=== PATIENT | male | born 1985 | race Caucasian/White ===

== ENCOUNTER 2023-12-24 10:06 | Emergency (ER) | payer OTHER ==
[~2023-12-24] VITALS: Ht 188 cm; Wt 124.7 kg
[~2023-12-24 10:06] MED LIST: ALPR2TAB2 PO; CLON-845 PO; DICY20TA55 PO; PARO-148 PO; VENL50TA2
[2023-12-24 10:13] VITALS: BP_SYST 171; PULSE 111; RESP 20; TEMP 98.3; O2SAT 98
[2023-12-24 10:55] LABS: BASOPHILS # (AUTO) 0.1 K/uL (0.0-0.2); BASOPHILS % (AUTO) 0.9 % (0.0-2.0); EOSINOPHILS # (AUTO) 0.3 K/uL (0.0-0.4); EOSINOPHILS % (AUTO) 2.9 % (0.0-4.0); HEMATOCRIT 44.5 % (36-54); HEMOGLOBIN 15.2 g/dL (14.0-18.0); LYMPHOCYTES # (AUTO) 2.9 K/uL (1.0-5.5); LYMPHOCYTES % (AUTO) 28.5 % (20.5-51.5); MEAN CORPUSCULAR HEMOGLOBIN 29 pg (27-31); MEAN CORPUSCULAR HGB CONC 34 % (32-36); MEAN CORPUSCULAR VOLUME 85 fL (79.0-98.0); MONOCYTES # (AUTO) 0.8 K/uL (0.0-1.0); MONOCYTES % (AUTO) 8.1 % (1.7-9.3); NEUTROPHILS % (AUTO) 59.6 % (40.0-70.0); PLATELET COUNT (AUTO) 317 K/uL (130-430); RED BLOOD CELL COUNT(AUTO) 5.23 MIL/uL (4.2-6.2); RED CELL DISTRIBUTION WIDTH 13.6 % (9.0-15.0); WHITE BLOOD COUNT (AUTO) 10.1 K/uL (4.8-10.8)
[2023-12-24 11:06] LABS: INR 1.1 (0.80-1.20)
[2023-12-24] MEDS: NS 1000 ML IV.SOLN IV ONE (11:06)
[2023-12-24 11:08] LABS: ALBUMIN 4.2 g/dL (3.4-4.8); BILIRUBIN,DIRECT 0.1 mg/dL (0.0-0.3); CALCIUM 9.3 mg/dL (8.4-11.0); CREATININE 0.95 mg/dL (0.55-1.30); TOTAL BILIRUBIN 0.5 mg/dL (0.0-1.0); TOTAL PROTEIN, SERUM 7.8 g/dL (6.4-8.3)
[2023-12-24] MEDS: ONDANSETRON HCL 4 MG/2 ML VIAL IVP ONE (11:08)
[2023-12-24] MEDS: MORPHINE 2 MG/ML INJ. SYRINGE IVP ONE (11:08)
[2023-12-24 12:29] LABS: BILIRUBIN,URINE NEGATIVE (NEGATIVE); BLOOD, URINE NEGATIVE (NEGATIVE); CLARITY/URINE CLEAR (CLEAR); COLOR,URINE YELLOW (YELLOW); GLUCOSE,URINE NEGATIVE (NEGATIVE); KETONES,URINE NEGATIVE (NEGATIVE); LEUKOCYTE ESTERASE ,URINE NEGATIVE (NEGATIVE); NITRITE, URINE NEGATIVE (NEGATIVE); PROTEIN URINE NEGATIVE (NEGATIVE); UROBILINOGEN,URINE 0.2 (0.2-1.0)
[2023-12-24] MEDS ORDERED: HYDR-3927 PO (13:09)
[2023-12-24] MEDS ORDERED: ONDA-8 TL (13:09)
[2023-12-24 13:17] VITALS: BP_SYST 171; PULSE 111; RESP 20; TEMP 98.3; O2SAT 98
== END 2023-12-24 13:15 | disposition home or self-care (01) ==
LOC: SED 10:06
DX: K58.9 Irritable bowel syndrome, unspecified (principal); K62.5 Hemorrhage of anus and rectum; R10.13 Epigastric pain; R11.2 Nausea with vomiting, unspecified; F12.90 Cannabis use, unspecified, uncomplicated; Z90.49 Acquired absence of other specified parts of digestive tract; Z79.899 Other long term (current) drug therapy
CPT/HCPCS: 99285; 74176; 96374; 96361; 71045; 96375; 80076; 80048; 81001; 85025; 85610; 85730; 86886; 86900; 86901; 87040; 87086; 36415; 93005; 83605; 82397; 81003; J2405; J2270; J7030